=== PATIENT | female | born 1975 | race Caucasian/White ===

== ENCOUNTER → 2024-07-24 16:44 | Outpatient (REF) | payer OTHER, SELFPAY | LOC: RCS 16:44 | PROVIDERS: ATTENDING PHYSICIAN Family Medicine; FAMILY PHYSICIAN Family Medicine | DX: R00.2 Palpitations (principal) | CPT/HCPCS: 93306 ==

== ENCOUNTER → 2025-01-16 10:34 | Outpatient (REF) | payer OTHER, BC, SELFPAY | LOC: RCS 10:34 | PROVIDERS: ATTENDING PHYSICIAN Internal Medicine; FAMILY PHYSICIAN Nurse Practitioner Family | DX: R00.2 Palpitations (principal); E66.9 Obesity, unspecified | CPT/HCPCS: 93017 ==